=== PATIENT | female | born 1990 | race Two or more races ===

== ENCOUNTER 2016-08-06 00:50 | Observation (INO) | payer OTHER, MEDICAID ==
[2016-08-06] MEDS ORDERED: PRENATAL VITAM1 EAC7 PO (16:28)
== END 2016-08-06 06:53 ==
LOC: LDR 00:50
PROVIDERS: ADMIT Obstetrics & Gynecology
DX: O47.1 False labor at or after 37 completed weeks of gestation (principal); Z3A.37 37 weeks gestation of pregnancy

== ENCOUNTER 2016-08-06 14:49 | Inpatient (IN) | payer OTHER, MEDICAID ==
[2016-08-06] MEDS ORDERED: PRENATAL VITAM1 EAC7 PO (16:28)
[2016-08-06 17:40] LABS: BASO % 0.1 % (0-2); EOS % 0.3 % (0-7); HCT-HEMATOCRIT 31.4 % (34.0-49.0); HGB-HEMOGLOBIN 11.3 gm/dl (12.0-15.5); IMMATURE GRANULOCYTES ABSOLUTE 0.03 tho/cmm (0-0.03); IMMATURE GRANULOCYTES PERCENT 0.3 % (0-0.3); LYMPH ABSOLUTE COUNT 1.6 tho/cmm (0.8-4.5); MCH (MEAN CORPUSCULAR HGB) 31.7 pg (28.0-32.0); MCV (MEAN CELL VOLUME) 88.2 fl (82.0-96.0); MEAN PLATELET VOLUME 11.4 cmc (9.4-12.4); MONO % 8.2 % (0-12); MONOCYTE ABSOLUTE COUNT 0.9 tho/cmm (0.0-1.2); NEUTROPHIL ABSOLUTE COUNT 8.9 tho/cmm (1.6-8.0); NEUTROPHIL-AUTOMATED 8.9 tho/cmm (1.6-8.0); NEUTROPHILS % 77.1 % (40-80); PLATELET COUNT 178 tho/cmm (150-450); RED BLOOD COUNT 3.56 mil/cmm (4.00-5.20); RED CELL DISTRIBUTION WIDTH 12.4 % (12.4-16.4); WHITE BLOOD COUNT 11.5 tho/cmm (4.0-10.0)
[2016-08-06 21:19] LABS: CORD BLOOD PH ARTERIAL 7.32 Units (7.18-7.38)
[2016-08-10] MEDS ORDERED: IBUPROFEN800 M1 PO (10:00)
[2016-08-10] MEDS ORDERED: PERCOCET 5-3251 EACH PO (10:02)
== END 2016-08-10 14:38 | DRG 766 ==
LOC: LDR 14:49 → OBGE 22:49
PROVIDERS: ADMIT Obstetrics & Gynecology
PROC: 10D00Z1 Extraction of Products of Conception, Low, Open Approach (ICD-10-PCS; principal; 2016-08-06)
DX: O76 Abnormality in fetal heart rate and rhythm complicating labor and delivery (principal); O77.0 Labor and delivery complicated by meconium in amniotic fluid; Z37.0 Single live birth; Z3A.39 39 weeks gestation of pregnancy
CPT/HCPCS: J0690; J2175; J2590; J3010; J7121